=== PATIENT | male | born 1950 | race African-American/Black ===

== ENCOUNTER 2019-01-16 18:27 | Emergency (ER) | payer OTHER, MEDICAID ==
[~2019-01-16] VITALS: Ht 185.4 cm; Wt 83.9 kg
[2019-01-16 18:57] VITALS: BP_SYST 140
--- NOTE | 2019-01-16 19:03 | NUR ---
Patient to ER bed 08 to gown for evaluation. Side rails up.
--- NOTE | 2019-01-16 20:22 | NUR ---
Dr. Cortés at bedside for Pt eval
--- NOTE | 2019-01-16 20:30 | NUR ---
Uriel CHAMBERS from [facility] to ED for medical clearance to [facility] presenting with increased confusion and foul smelling urine earlier today. Patient has a history of schizophrenia, Parkinson, depression, psychosis, anxiety, diabetes, and hypertension. Pt already has assigned MD and an assigned room at [facility] No other injuries and or complaints noted VSS no s/s of acute distress Resting on gurney rails up
[2019-01-16 20:57] LABS: BASOPHILS % (AUTO) 0.7 % (0.0-2.0); EOSINOPHILS # (AUTO) 0.1 K/uL (0.0-0.4); EOSINOPHILS % (AUTO) 2.1 % (0.0-4.0); HEMOGLOBIN 14.5 g/dL (14.0-18.0); LYMPHOCYTES # (AUTO) 1.9 K/uL (1.0-5.5); LYMPHOCYTES % (AUTO) 39.9 % (20.5-51.5); MEAN CORPUSCULAR HEMOGLOBIN 34 pg (27-31); MEAN CORPUSCULAR HGB CONC 35 % (32-36); MEAN CORPUSCULAR VOLUME 98 fL (79.0-98.0); MONOCYTES # (AUTO) 0.5 K/uL (0.0-1.0); MONOCYTES % (AUTO) 10.7 % (1.7-9.3); NEUTROPHILS # (AUTO) 2.2 K/uL (1.8-7.7); NEUTROPHILS % (AUTO) 46.6 % (40.0-70.0); PLATELET COUNT (AUTO) 177 K/uL (130-430); RED BLOOD CELL COUNT(AUTO) 4.28 MIL/uL (4.2-6.2); WHITE BLOOD COUNT (AUTO) 4.6 K/uL (4.8-10.8)
[2019-01-16 21:21] LABS: PROTHROMBIN TIME 9.9 SECS (9.5-12.5)
--- NOTE | 2019-01-16 21:45 | NUR ---
VSS no s/s of acute distress Resting on gurney rails up
[2019-01-16 22:03] LABS: CALCIUM 8.6 mg/dL (8.4-11.0); CREATININE 0.91 mg/dL (0.55-1.30); POTASSIUM 4.2 mmol/L (3.5-5.1)
[2019-01-16 22:16] LABS: BILIRUBIN,URINE NEGATIVE (NEGATIVE); COLOR,URINE YELLOW (YELLOW); GLUCOSE,URINE NEGATIVE (NEGATIVE); KETONES,URINE NEGATIVE (NEGATIVE); LEUKOCYTE ESTERASE ,URINE 2+ (NEGATIVE); NITRITE, URINE POSITIVE (NEGATIVE); PROTEIN URINE NEGATIVE (NEGATIVE)
[2019-01-16 22:17] LABS: ALBUMIN 2.9 g/dL (3.4-4.8); THYROID STIMULATING HORMONE 4.47 uIu/mL (0.36-3.74); TOTAL BILIRUBIN 0.3 mg/dL (0.0-1.0)
[2019-01-16 22:19] LABS: BLOOD, URINE TRACE (NEGATIVE)
[2019-01-16 22:20] LABS: CLARITY/URINE HAZY (CLEAR)
[2019-01-16 22:28] LABS: BARBITURATE, URINE NEGATIVE (NEG <=200); BENZODIAZEPINE, URINE NEGATIVE (NEG <=150); CANNABINOID, URINE NEGATIVE (NEG <=50); COCAINE, URINE NEGATIVE (NEG <=150); METHAMPHETAMINES SCREEN,URINE NEGATIVE (NEG <=500); OPIATE, URINE NEGATIVE (NEG <=100); PHENCYCLIDINE SCREEN,URINE NEGATIVE (NEG <=25); UR TRICYCLIC ANTIDEPRESSANTS POSITIVE (NEG <=300); URINE AMPHETAMINE NEGATIVE (NEG <=500); URINE METHADONE NEGATIVE (NEG <=200); URINE OXYCODONE SCREEN NEGATIVE (NEG <=100); URINE PROPOXYPHENE SCREEN NEGATIVE (NEG <=300)
--- NOTE | 2019-01-16 22:35 | NUR ---
Obtained Urine sample via straight Cath, well tolerated
[2019-01-16 22:55] LABS: BACTERIA,URINE MANY /HPF (None Seen); WBC,URINE 20-50 /HPF (0-3)
[2019-01-16] MEDS ORDERED: cefTRIAXone 1 GM IVPB PREMIX 50 ML IV ONE (23:15)
--- NOTE | 2019-01-16 23:31 | NUR ---
Pt verbalized "I'm feeling better."
[2019-01-16] MEDS ORDERED: cefTRIAXone 1 GM in LIDOCAINE 1%, 20 ML MDV 2.1 ML IM ONE (23:45)
[2019-01-16] MEDS ORDERED: LIDOCAINE 1%, 20 ML MDV 20 ML ONE (23:57)
[2019-01-17 00:30] VITALS: BP_SYST 121
--- NOTE | 2019-01-17 00:30 | NUR ---
Patient given written and verbal discharge instructions and verbalizes understanding. ER MD discussed with patient the results and treatment provided. Patient in stable condition. ID arm band removed. Rx of Macrobid given. Patient educated on pain management and to follow up with PMD. Pain Scale 0/10 Opportunity for questions provided and answered. Medication side effect fact sheet provided.
[2019-01-17 12:08] LABS: CHOLESTEROL 187 mg/dL (<200); HDL CHOLESTEROL 50 mg/dL (>45); LDL CHOLESTEROL 113 mg/dL (<100); TRIGLYCERIDES 72 mg/dL (30-150)
== END 2019-01-17 00:30 ==
LOC: SED 18:27
DX: F03.90 Unspecified dementia, unspecified severity, without behavioral disturbance, psychotic disturbance, mood disturbance, and anxiety (principal); N39.0 Urinary tract infection, site not specified; E03.9 Hypothyroidism, unspecified; F32.9 Major depressive disorder, single episode, unspecified; F41.9 Anxiety disorder, unspecified; F20.9 Schizophrenia, unspecified; I10 Essential (primary) hypertension
CPT/HCPCS: 36415; 71045; 80053; 80061; 80307; 81000; 83036; 84443; 84484; 85025; 85610; 85730; 87086; 87186; 93005; 96372; 99285; J0696; J2001

== ENCOUNTER 2019-01-20 15:00 | Outpatient (CLI) | payer OTHER, MEDICAID ==
[2019-01-20 16:34] LABS: CHOLESTEROL 201 mg/dL (<200); HDL CHOLESTEROL 47 mg/dL (>45); LDL CHOLESTEROL 126 mg/dL (<100); TRIGLYCERIDES 140 mg/dL (30-150)
== END 2019-01-20 19:29 | disposition home or self-care (01) ==
LOC: SLB 15:00
PROVIDERS: ATTEND Psychiatry & Neurology Psychiatry
DX: R45.1 Restlessness and agitation (principal); E11.9 Type 2 diabetes mellitus without complications; I10 Essential (primary) hypertension; G20 Parkinson's disease; F02.80 Dementia in other diseases classified elsewhere, unspecified severity, without behavioral disturbance, psychotic disturbance, mood disturbance, and anxiety; F20.9 Schizophrenia, unspecified; F41.8 Other specified anxiety disorders
CPT/HCPCS: 36415; 80061; 83036